=== PATIENT | male | born 1965 | race Hispanic/Latino ===

== ENCOUNTER → 2022-06-25 | Day surgery (SDC) | payer BC ==
[~2022-06-25] MED LIST: COMBIGAN EYE DRO5 ML OP; LIDOCAINE HCL 2% LOCAL INJ 5 ML SDV VIAL INJ ONE; MIDAZOLAM HCL 2 MG/2 ML VIAL ONE; PROPOFOL IV EMULSION 10 MG/ML 20 ML VIAL ONE; SIMVASTATIN40 MG PO
[2022-06-25 14:00] VITALS: BP 114/81
== END | disposition home or self-care (01) ==
LOC: OR 10:44
PROVIDERS: ATTEND Internal Medicine Gastroenterology
DX: Z12.11 Encounter for screening for malignant neoplasm of colon (principal); D12.3 Benign neoplasm of transverse colon; K64.8 Other hemorrhoids; R58 Hemorrhage, not elsewhere classified; H54.62 Unqualified visual loss, left eye, normal vision right eye; E78.5 Hyperlipidemia, unspecified; R00.1 Bradycardia, unspecified; Z01.810 Encounter for preprocedural cardiovascular examination; Z79.899 Other long term (current) drug therapy
CPT/HCPCS: 45380; 93005; J2001; J2250; J2704; 45378

== ENCOUNTER → 2024-06-18 | Day surgery (SDC) | payer BC ==
[~2024-06-18] MED LIST changes: -MIDAZOLAM HCL 2 MG/2 ML VIAL ONE; +TIMOPTIC 0.25%1 EACH OD
[2024-06-18] MEDS: LACTATED RINGER'S 1,000 ML ONE (09:55)
[2024-06-18 12:28] VITALS: BP 126/78; PULSE 67; RESP 18; O2SAT 97
== END | disposition home or self-care (01) ==
LOC: OR 08:45
PROVIDERS: ATTEND Internal Medicine Gastroenterology
DX: R19.5 Other fecal abnormalities (principal); K29.50 Unspecified chronic gastritis without bleeding; B96.81 Helicobacter pylori [H. pylori] as the cause of diseases classified elsewhere; K44.9 Diaphragmatic hernia without obstruction or gangrene; K29.80 Duodenitis without bleeding; K64.8 Other hemorrhoids; E66.01 Morbid (severe) obesity due to excess calories; H40.9 Unspecified glaucoma; E78.5 Hyperlipidemia, unspecified; Z01.810 Encounter for preprocedural cardiovascular examination; Z79.899 Other long term (current) drug therapy
CPT/HCPCS: 43239; 93005; J2001; J2704; J7121